=== PATIENT | female | born 2000 | race Two or more races ===

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

== ENCOUNTER 2021-03-16 18:15 | Emergency (ER) | payer OTHER ==
[2021-03-16 18:30] VITALS: BP 122/78; PULSE 76; TEMP 98.7; BMI 26.0
[2021-03-16] MEDS ORDERED: ACETAMINOPHEN/CAFFEINE/BUTALBITAL 1 TAB ONE (20:16)
== END 2021-03-16 20:25 | disposition home or self-care (01) ==
LOC: JERFT 18:15
DX: M79.675 Pain in left toe(s) (principal); W26.8XXA Contact with other sharp object(s), not elsewhere classified, initial encounter
CPT/HCPCS: 99283-25

== ENCOUNTER 2021-07-22 16:04 | Inpatient (IN) | payer OTHER ==
[2021-07-22 16:09] VITALS: BMI 25.4
[2021-07-22] MEDS ORDERED: ACETAMINOPHEN 500 MG TABLET (FP) PO ONE (16:51)
[2021-07-22] MEDS ORDERED: ONDANSETRON 4 MG TABLET PO ONE (16:52)
[2021-07-22] MEDS ORDERED: ONDANSETRON *ODT* 4 MG TABLET ONE (16:55)
[2021-07-22] MEDS ORDERED: ACETAMINOPHEN 500 MG TABLET (FP) ONE (16:57)
[2021-07-22 17:09] LABS: URINE APPEARANCE CLOUDY; URINE BILIRUBIN NEGATIVE (NEGATIVE); URINE COLOR YELLOW; URINE GLUCOSE (UA) NEGATIVE (NEGATIVE); URINE KETONE TRACE (NEGATIVE); URINE LEUK ESTERASE NEGATIVE (NEGATIVE); URINE NITRITE NEGATIVE (NEGATIVE); URINE PROTEIN NEGATIVE (NEGATIVE)
[2021-07-22] MEDS ORDERED: SODIUM CHLORIDE 1,000 ML IV STA (17:50)
[2021-07-22 18:10] LABS: BASO % 0.2 % (0-2.0); HEMATOCRIT 33.4 % (32.4-45.2); HEMOGLOBIN 11.3 GM/dL (10.7-15.3); LYMPH % 6.2 % (8-40); MEAN CELL VOLUME 88.2 fl (80-96); MEAN PLT VOLUME 7.8 fl (7.5-11.1); MONO % 4.5 % (3.8-10.2); NEUT % 89.1 % (42.8-82.8); PLATELET COUNT 324 10^3/uL (134-434); RBC 3.78 M/mm3 (3.60-5.2); RDW 13.2 % (11.6-15.6); WHITE BLOOD COUNT 14.9 K/mm3 (4.0-10.0)
[2021-07-22 18:12] LABS: INR 1.1 (0.83-1.09); PROTHROMBIN TIME (PATIENT) 12.7 SEC (9.7-13.0)
[2021-07-22 18:30] LABS: ALBUMIN 4.2 g/dl (3.4-5.0); BLOOD UREA NITROGEN 11.4 mg/dL (7-18); CALCIUM 9.4 mg/dL (8.5-10.1)
[2021-07-22 18:33] LABS: CREATININE 0.7 mg/dL (0.55-1.3)
[2021-07-22 18:35] LABS: BILIRUBIN,TOTAL 0.4 mg/dL (0.2-1); TOT PROT 7.5 g/dl (6.4-8.2)
[2021-07-22] MEDS ORDERED: MIDAZOLAM HCL 2 MG/2 ML SINGLE DOSE VIAL ONE (19:23)
[2021-07-22] MEDS ORDERED: PROPOFOL 20 ML ONE ×3 (19:24→20:32)
[2021-07-22] MEDS ORDERED: ROCURONIUM BROMIDE 100 MG/10 ML VIAL ONE (19:26)
[2021-07-22] MEDS ORDERED: SUCCINYLCHOLINE CHLORIDE 200 MG/10 ML SYRINGE ONE (19:26)
[2021-07-22] MEDS ORDERED: ceFAZolin SODIUM 1 GM VIAL IVPB ONE (20:00)
[2021-07-22] MEDS ORDERED: BUPIVACAINE HCL/PF 0.5% (5MG/ML) 10 ML VIAL ONE (20:29)
[2021-07-22] MEDS ORDERED: BUPIVACAINE HCL/PF 0.5% (5MG/ML) 10 ML VIAL IJ ONE (20:49)
[2021-07-22] MEDS ORDERED: IBUPROFEN 600 MG TABLET (FP) PO PRN (21:10)
[2021-07-22] MEDS ORDERED: ACETAMINOPHEN 325 MG TABLET (FP) PO PRN (21:11)
[2021-07-22] MEDS ORDERED: KETOROLAC TROMETHAMINE 30 MG/1 ML VIAL ONE (21:12)
[2021-07-22] MEDS ORDERED: ACETAMINOPHEN INJECTION 100 ML IVPB ONE (21:13)
[2021-07-22] MEDS ORDERED: oxyCODONE HCL 5 MG TABLET PO PRN (21:13)
[2021-07-22] MEDS ORDERED: ONDANSETRON 4 MG/2 ML VIAL IVPUSH PRN (21:13)
[2021-07-22] MEDS ORDERED: KETOROLAC TROMETHAMINE 30 MG/1 ML VIAL IVPUSH ONE (21:13)
[2021-07-22] MEDS ORDERED: ACETAMINOPHEN 1000 MG/100 ML BAG IVPB ONE ×2 (21:14→21:16)
[2021-07-22] MEDS ORDERED: KETOROLAC TROMETHAMINE 30 MG/1 ML VIAL IM ONE (21:15)
[2021-07-22] MEDS ORDERED: DEXTROSE 5%-LACTATED RINGERS 1,000 ML IV SCH (21:15)
[2021-07-23] MEDS ORDERED: ceFAZolin SODIUM 1 GM VIAL ONE (07:22)
[2021-07-23] MEDS ORDERED: DEXTROSE 5%-WATER - 50 ML IVPB ONE (07:22)
[2021-07-23 07:43] LABS: BASO % 0.1 % (0-2.0); HEMATOCRIT 25.2 % (32.4-45.2); HEMOGLOBIN 8.9 GM/dL (10.7-15.3); LYMPH % 7.8 % (8-40); MCH 30.9 pg (25.7-33.7); MCHC 35.1 g/dl (32.0-36.0); MEAN PLT VOLUME 8.4 fl (7.5-11.1); MONO % 5.9 % (3.8-10.2); NEUT % 86.2 % (42.8-82.8); PLATELET COUNT 250 10^3/uL (134-434); RBC 2.87 M/mm3 (3.60-5.2); RDW 13.2 % (11.6-15.6); WHITE BLOOD COUNT 6.8 K/mm3 (4.0-10.0)
[2021-07-23] MEDS ORDERED: CEFAZOLIN 1 GM in DEXTROSE 5%-WATER - 50 ML IVPB ONE (08:00)
[2021-07-23 09:06] VITALS: BP 106/55; PULSE 93; TEMP 98.6
== END 2021-07-23 11:30 | disposition home or self-care (01) | DRG 545 ==
LOC: JER 16:04 → JERBED 18:07 → J3W 22:30
PROVIDERS: ADMIT Obstetrics & Gynecology; ATTEND Obstetrics & Gynecology
PROC: 0UN14ZZ Release Left Ovary, Percutaneous Endoscopic Approach (ICD-10-PCS; 2021-07-22)
PROC: 0UC04ZZ Extirpation of Matter from Right Ovary, Percutaneous Endoscopic Approach (ICD-10-PCS; 2021-07-22)
PROC: 10D28ZZ Extraction of Products of Conception, Ectopic, Via Natural or Artificial Opening Endoscopic (ICD-10-PCS; principal; 2021-07-22 20:00)
PROC: 0UT54ZZ Resection of Right Fallopian Tube, Percutaneous Endoscopic Approach (ICD-10-PCS; 2021-07-22 20:00)
DX: O00.101 Right tubal pregnancy without intrauterine pregnancy (principal); N73.6 Female pelvic peritoneal adhesions (postinfective)
CPT/HCPCS: 36415; 71046-TC-FY; 76817-TC; 80053; 81003; 84702; 84703; 85025; 85610; 86850; 86900; 86901; 87086; 88305-TC; 93005; 93010; 94760; 99285-25; C9803; U0003; U0005

== ENCOUNTER 2022-05-01 12:49 | Emergency (ER) | payer OTHER ==
[2022-05-01 12:54] VITALS: TEMP 98.6; BMI 24.1
[2022-05-01] MEDS ORDERED: DEXAMETHASONE SOD PHOSPHATE 10 MG/1 ML VIAL IM ONE (13:52)
[2022-05-01] MEDS ORDERED: IBUPROFEN 100 MG/5 ML UNIT DOSE CUPS PO ONE (13:52)
[2022-05-01] MEDS ORDERED: IBUPROFEN 600 MG TABLET (FP) PO ONE (14:42)
[2022-05-01] MEDS ORDERED: DEXAMETHASONE SOD PHOSPHATE 10 MG/1 ML VIAL ONE (14:42)
[2022-05-01 14:58] VITALS: BP 122/87; PULSE 92; RESP 18
== END 2022-05-01 14:58 | disposition home or self-care (01) ==
LOC: JER 12:49
PROC: 3E023GC Introduction of Other Therapeutic Substance into Muscle, Percutaneous Approach (ICD-10-PCS; principal; 2022-05-01)
DX: J09.X2 Influenza due to identified novel influenza A virus with other respiratory manifestations (principal)
CPT/HCPCS: 0241U-QW; 87651; 99284-25; J1100

== ENCOUNTER 2024-04-14 10:36 | Emergency (ER) | payer OTHER ==
[2024-04-14 11:00] VITALS: BP 109/72; PULSE 102; RESP 15; TEMP 100.8; BMI 25.4
[2024-04-14 11:52] LABS: THROAT:GRP A STREP NOT DETECTED (NOTDETECTED)
[2024-04-14] MEDS ORDERED: ACETAMINOPHEN 500 MG TABLET (FP) ONE (12:12)
[2024-04-14] MEDS ORDERED: AMOX TR/POT CLAV 875MG/125MG TABLETS (FP) ONE (12:12)
[2024-04-14] MEDS: AMOX TR/POT CLAV 875MG/125MG TABLETS (FP) PO ONE (12:19)
[2024-04-14] MEDS: ACETAMINOPHEN 500 MG TABLET (FP) PO ONE (12:19)
[2024-04-14 23:55] LABS: HIV INTERPRETATION NEGATIVE (NEGATIVE)
== END 2024-04-14 12:26 | disposition home or self-care (01) ==
LOC: JERFT 10:36
DX: J01.90 Acute sinusitis, unspecified (principal); R09.81 Nasal congestion; K08.89 Other specified disorders of teeth and supporting structures; R05.9 Cough, unspecified; Z20.822 Contact with and (suspected) exposure to COVID-19
CPT/HCPCS: 0241U-QW; 36415; 86803; 87389; 87651; 99283-25